=== PATIENT | female | born 1990 | race Caucasian/White ===

== ENCOUNTER 2021-08-02 12:54 | Emergency (ER) | payer OTHER, SELFPAY ==
--- NOTE | ~2021-08-02 | US_ITS ---
EXAMINATION: US OB <=14 wk fetus w TV EXAM DATE: 08/02/2021 17:35 INDICATION: , 1st trimester. Vaginal spotting and left lower quadrant pain. Beta hCG 151. . TECHNIQUE: Pelvic obstetrical transabdominal and transvaginal sonogram was performed by a techngary marie. There are multiple grayscale and Doppler images available for interpretation. There are no sid ier studies of this gestation for comparison. FINDINGS: Uterus measures 7.5 x 4.8 x 5.8 cm, is retroverted and morphologically normal, but without gestation sac identified. Endometrial stripe measures about 5 mm mm, within normal limits. There is small free pelvic fluid. Right adnexa: The ovary measures 4.7 x 2.6 x 3.3 cm, with a complex cystic, fishnet appearance region measuring 3.7 x 2.5 x 2.5 cm, appearance most consistent with a hemorrhagic cyst. No pole or y olk sac identified within this.. Ovarian vascular flow confirmed. Left adnexa: The ovary measures 4.3 x 2.2 x 2.9 cm, with multiple anechoic regions identified, larges t 2.4 cm, appearance most consistent with physiologic cysts. No pole or yolk sac identified wit hin these.. Ovarian vascular flow confirmed. IMPRESSION: 1. No intrauterine or extrauterine identified. Early intrauterine or recent spo ntaneous are common causes of elevated beta hCG in absence of intrauterine confirm ation. Ultrasound can sometimes identify, but never exclude an ectopic in the setting of p ositive beta hCG. Follow up as warranted clinically with serial beta hCG levels or ultrasound. 2. Right renal complex cystic lesion most consistent with hemorrhagic cyst. Reviewed, dictated and finalized at location A. IMPRESSION: 1. No intrauterine or extrauterine identified. Early intrauterine p regnancy or recent spontaneous are common causes of elevated beta hCG in absence of intrauterine confirmation. Ultrasound can sometimes id entify, but never exclude an ectopic in the setting of positive beta hCG. Follow up as warranted clinically with serial beta hCG levels or ultrasou nd. 2. Right renal complex cystic lesion most consistent with hemorrhagic cyst.
[2021-08-02 13:48] VITALS: BP 134/72; PULSE 84; RESP 18; TEMP 36.7; O2SAT 99
[2021-08-02 14:03] LABS: Basophils Percent Auto 0.3 % (0.2-1.2); Eosinophils Absolute Auto 0.1 K/mm3 (0-0.3); Eosinophils Percent Auto 1.4 % (0-4.4); Hematocrit 40.2 % (37.0-47.0); Hemoglobin 13.6 g/dL (12.0-15.0); Immature Granulocyte Absolute 0.02 K/mm3 (0.00-0.031); Immature Granulocyte Percent A 0.2 % (0-0.5); Lymphocytes Absolute Auto 2.55 K/mm3 (0.9-3.2); Lymphocytes Percent Auto 28.4 % (18.3-44.2); Mean Corpuscular HGB Conc 33.8 g/dl (32-36); Mean Corpuscular Hemoglobin 31.1 pg (26-34); Mean Corpuscular Volume 91.8 fl (80-100); Mean Platelet Volume 10.1 fl (7.4-10.4); Monocytes Absolute Auto 0.6 K/mm3 (0.1-0.6); Monocytes Percent Auto 6.1 % (2.6-8.5); Neutrophils Absolute Auto 5.7 K/mm3 (1.3-6.7); Neutrophils Percent Auto 63.6 % (45.5-73.1); Platelet Count Result 210 k/mm3 (150-375); Red Blood Count 4.38 M/mm3 (4.2-5.4); Red Cell Distribution Width 12.2 % (11.5-14.5)
[2021-08-02 14:29] LABS: Beta HCG Quantitative 151.62 mIU/ML
--- NOTE | 2021-08-02 16:33 | ED.FEMALEGU ---
HPI - Female Genitourinary General Chief complaint: Vaginal Bleeding Stated complaint: complication Time Seen by Provider: 08/02/21 16:01 Source: patient Mode of arrival: ambulatory Limitations: no limitations History of Present Illness HPI Narrative: Pt is a , last normal menstrual period 06/21/2021 that started one day later than usual. She took a UPT and the test was negative. She then had a spotting period that started on 07/17/2021 that lasted a brief time before it stopped. She began having breast tenderness and nausea, prompting her to take another UPT last weekend, with a positive result reported. She began spotting again this morning, only noting light pink on the tissue when she is wiping and she is having some mild pressure/discomfort in the left suprapubic abdomen. She denies associated vaginal discharge, urinary symptoms or STI risk. She made her first appointment with [facility] however, she has not had her first appointment yet, prompting her visit MD elicited complaint: vaginal bleeding Onset (ago): day(s) (1) Severity: mild Female Urogenital Radiation: Suprapubic (left suprapubic) Severity scale (1-10): 5 Quality of pain: dull Vaginal discharge: none Vaginal bleeding: scant Exacerbating factors: none Relieving factors: none Associated symptoms: denies other symptoms Related Data Allergies Allergy/AdvReac Type Severity Reaction Status Date / Time No Known Allergies Allergy Verified 08/02/21 16:01 Review of Systems Review of Systems: refer to HPI Genitourinary: Genitourinary: Reports no additional female genitourinary complaints and Reports as per HPI Exam Const: General: healthy appearing, no acute distress and alert Orientation/consciousness: patient oriented x3 Limitations: altered mental status HENMT: Head: normal to inspection Face and sinus: normal facial exam Eyes: Conjunctivae: conjunctivae normal Pupils: Equal, round and reactive pupils present EOM: EOMs intact bilaterally Neck: Neck: normal visual inspection Lymphatic: no lymphadenopathy noted Resp: Effort & Inspection: normal respiratory effort Cardio: Rate: regular rate GI: GI Palp: Yes Soft to palpation (non tender, non distended, no HSM, no rebound TTP) Auscultation: normal bowel sounds : General: Yes no CVA tenderness Bimanual Exam- Adnexa, other: tender on the left Back/Spine/Pelvis: Back: no CVA tenderness Skin: General skin exam: normal color Rashes: no rashes Neuro: General: patient oriented x3, moves all extremities, no meningeal signs, no focal motor deficits and CN's II-XI intact bilaterally Extrem: General: normal to inspection and no pedal edema Psych: Mental Status: mental status grossly normal Affect: normal affect Attitude: cooperative Course Course Emergency Course: Pt's vaginal bleeding remains at a pink tinge when wiping only when voiding. She is advised of lab and US report. Pt is endorsed to Dr Balbuena, cotton ginner helper OBGYN. He agrees to FU with patient outpatient; with repeat beta HCG to be completed in 2 days. Pt is advised of plan to discharge home with vitamins-OTC are fine as long as they contain DHA, calling the office tomorrow to arrange for outpatient labs in 48 hours. Pt is agreeable with plan and verbalizes understanding of instructions provided; including pelvic rest and when to return to the ER. Vital Signs Vital signs: Vital Signs Temperature 36.7 C 08/02/21 13:48 Pulse Rate 84 08/02/21 13:48 Respiratory Rate 18 08/02/21 13:48 Blood Pressure 134/72 08/02/21 13:48 Pulse Oximetry 99 08/02/21 13:48 Temperature 36.7 C 08/02/21 13:48 Pulse Rate 84 08/02/21 13:48 Respiratory Rate 18 08/02/21 13:48 Blood Pressure 134/72 08/02/21 13:48 Pulse Oximetry 99 08/02/21 13:48 MDM - Female Genitourinary MDM Narrative Medical decision making narrative: THREATENED AB, ECTOPIC , MISSED AB Lab Data Result diagrams:
[2021-08-02 18:52] VITALS: BP 130/72; PULSE 84; RESP 16; TEMP 36.8; O2SAT 99
== END 2021-08-02 18:53 | disposition home or self-care (01) ==
PROVIDERS: Emergency Medicine; Emergency Provider Nurse Practitioner Family; PCP Family Medicine
DX: O20.0 Threatened abortion (principal); Z3A.00 Weeks of gestation of pregnancy not specified
CPT/HCPCS: 36415; 76801; 76817; 84702; 85025; 85461; 99284

== ENCOUNTER 2021-08-04 09:51 | Outpatient (CLI) | payer OTHER, SELFPAY ==
[2021-08-04 10:54] LABS: Beta HCG Quantitative 63.07 mIU/ML
== END 2021-08-04 09:52 | disposition home or self-care (01) ==
LOC: ANHLAB 09:54
PROVIDERS: PCP Family Medicine; Visit Provider Obstetrics & Gynecology
DX: O20.0 Threatened abortion (principal); Z3A.00 Weeks of gestation of pregnancy not specified
CPT/HCPCS: 36415; 84702

== ENCOUNTER 2021-08-11 10:02 | Outpatient (CLI) | payer OTHER, SELFPAY ==
[2021-08-11 10:58] LABS: Beta HCG Quantitative 17.77 mIU/ML
== END 2021-08-11 10:03 | disposition home or self-care (01) ==
LOC: ANHLAB 10:04
PROVIDERS: PCP Family Medicine; Visit Provider Obstetrics & Gynecology
DX: O02.1 Missed abortion (principal); Z3A.00 Weeks of gestation of pregnancy not specified
CPT/HCPCS: 36415; 84702

== ENCOUNTER 2021-08-19 11:46 | Outpatient (CLI) | payer OTHER, SELFPAY ==
[2021-08-19 12:54] LABS: Beta HCG Quantitative 8.51 mIU/ML
== END 2021-08-19 11:47 | disposition home or self-care (01) ==
PROVIDERS: PCP Family Medicine; Visit Provider Obstetrics & Gynecology
DX: O20.0 Threatened abortion (principal); Z3A.00 Weeks of gestation of pregnancy not specified
CPT/HCPCS: 36415; 84702

== ENCOUNTER 2021-08-25 11:07 | Outpatient (CLI) | payer OTHER, SELFPAY ==
[2021-08-25 11:53] LABS: Beta HCG Quantitative 6.95 mIU/ML
== END 2021-08-25 11:08 | disposition home or self-care (01) ==
LOC: ANHLAB 11:10
PROVIDERS: PCP Family Medicine; Visit Provider Obstetrics & Gynecology
DX: O20.0 Threatened abortion (principal)
CPT/HCPCS: 36415; 84702

== ENCOUNTER → 2023-06-22 09:46 | Outpatient (CLI) | payer OTHER, SELFPAY ==
--- NOTE | ~2023-06-22 | US_ITS ---
Limited Abdominal Sonogram: Real-time sonographic imaging of the right upper quadrant was performed. Clinical History: Abnormal serum enzyme levels Findings: The liver appears echogenic, with no evidence of mass lesion or bile duct dilatation. Main portal vein demonstrates normal direction of flow. The gallbladder is well distended, and appears no rmal with no evidence of gallstone or wall thickening. The common bile duct measures 3 mm. The visua lized pancreas, aorta, and IVC are unremarkable. Right kidney measures 9.1 cm in length, without hydr onephrosis. Impression: Diffuse fatty infiltration of the liver. Reviewed, dictated and finalized at location M. IAL CRIMES INVESTIGATOR Impression: Diffuse fatty infiltration of the liver.
== END ==
PROVIDERS: PCP Physician Assistant; Visit Provider Physician Assistant
DX: K76.0 Fatty (change of) liver, not elsewhere classified (principal); R74.8 Abnormal levels of other serum enzymes
CPT/HCPCS: 76705

== ENCOUNTER 2024-08-11 10:05 | Outpatient (CLI) | payer SELFPAY ==
[2024-08-11 10:21] LABS: Kit Draw Collected
--- OUTSIDE RECORDS SUMMARY | 2024-08-11 11:15 | XMS_ITS ---
Author Organization [facility] Address [address] [place] [address] Care Team Providers Care Residential Property Consultant Name Role Phone Greg Emery MD Primary Care Provider Unavaila Orion Kwon Unavailable [phone] Larry Montez Unavailable [phone] REASON FOR VISIT SCIT - Traditional Schedule Allergy Immunotherapy Medications Medication SIG (Take, Route, Frequency, Duration) Notes Start Date End Date Status Auvi-Q 0.3 MG/0.3ML as directed intramuscularly once for 30 days Active Citalopram Hydrobromide 20 MG 1 tab(s) orally once a day Active Cetirizine HCl 10 MG 1 tab(s) orally once a day for 30 days Active Montelukast Sodium 10 MG 1 tab(s) orally once a day for 30 day(s) Active Triamcinolone Acetonide 55 MCG/ACT 2 spray(s) intranasally twice a day for 30 days Active Famotidine 40 mg 1 tab(s) orally 30 mins prior to SCIT for 30 days Active SIT (TRADITIONAL) variable per schedule SC per schedule for to be determined Active MONTELUKAST 10 mg 1 tab(s) orally once a day for 30 day(s) Active Fluticasone Propionate 50 MCG/ACT 2 sprays in each nostril Nasally Twice a day for 30 days Active EpiPen 2-Barrington 0.3 mg as directed intramuscularly once for 30 days Active NASAL WASHES N/A as directed intranasally as needed for 30 Active Montelukast Sodium 10 MG 1 tab(s) orally once a day for 90 day(s) Not-Taking SIT (TRADITIONAL) VARIABLE PER SCHEDULE SC PER SCHEDULE *Please review for potential replacement for e-prescription and drug interaction check* Active CETIRIZINE 10 mg 1 tab(s) orally once a day for 30 days Active CITALOPRAM 20 mg 1 tab(s) orally once a day Active Encounters Encounter Location Date Provider Diagnosis [facility] [address] [facility] [address] [place] [address] 07/01/2024 Montez Juarez Allergic rhinitis du e to pollen J30.1 ; Other allergic rhinitis J30.89 ; Allergic rhinitis due to animal (cat) (dog) hair and dander J30.81 and Other chronic allergic conjunctivitis H10.45 Assessments Encounter Date Diagnosis (ICD Code) Assessment Notes Treatment Notes Treatment Clinical Notes Section Notes 07/01/2024 Allergic rhinitis due to pollen (ICD-10 - J30.1) 07/01/2024 Other allergic rhinitis (ICD-10 - J30.89) 07/01/2024 Allergic rhinitis due to animal (cat) (dog) hair and dander (ICD-10 - J30.81) 07/01/2024 Other chronic allergic conjunctivitis (ICD-10 - H10.45) Plan Of Treatment Next Appt Details Follow Up: 1 Week, Reason: Provider Name:Montez Juarez , 08/12/2024 09:00:00 AM, [address] [place] [address], [phone], Provider Name:Orion Dumont Joel holbrook, 12/08/2024 09:15:00 AM, [address], [address] [place] [address], [id number], Progress Notes * Marivel WHEAT:1990 (34 yo F)Acc No.[id number]:07/01/2024 SCIT-Aeroallergen Patient: Stuart VILLALPANDOa Provider: Dayami Juarez MD :1990 A ge:34 Y S ex:Female Date:07/01/2024 [id number] Pcp:Greg Emery MD Subjective: * Chief Complaints: * S CIT - Traditional Schedule Allergy Immunotherapy * HPI: * Introduction: The patient is here for scheduled immunotherapy. Please see the attached specialty form regarding the specifics of the administration of these vaccines. As per our protocol, they must undergo a screening health questionnaire (medication changes, reaction(s) to last immunotherapy dose(s), current health status, ACT (if appropriate), self-injectable epinephrine on patient(?) and peak flow (if appropriate)). Also, the patient must wait in our office for 30 minutes after receiving the vaccine(s). Furthermore, every patient must have an epinephrine pen (self-injectable) with them at the time of administration--and carry if for the following 1.5 hours after they leave our office. The patient must also have taken their antihistamine the day of the injection, preferably 2 hours prior. The consent form for SCIT (subcutaneous immunotherapy) is on file. * Medical History: * Surgical History: * Hospitalization/Major Diagno stic Procedure: * Medications: T akingCITALOPRAM 20 mg tablet 1 tab(s) orally once a day CETIRIZINE 10 mg tablet 1 tab(s) orally once a day NASAL WASHES N/A 1 quart of sterilized tap water or distilled water, 1 tsp NaCl, 1 pinch of baking soda as directed intranasally as needed Famotidine 40 mg tablet 1 tab(s) orally 30 mins prior to SCIT MONTELUKAST 10 mg tablet 1 tab(s) orally once a day SIT (TRADITIONAL) variable see record per schedule SC per schedule EpiPen 2-Barrington 0.3 mg kit as directed intramuscularly once Fluticasone Propionate 50 MCG/ACT Suspension 2 sprays in each nostril Nasally Twice a day Famotidine 40 mg tablet 1 tab(s) orally 30 mins prior to SCIT EpiPen 2-Barrington 0.3 mg kit as directed intramuscularly once Cetirizine HCl 10 MG Tablet 1 tab(s) orally once a day Triamcinolone Acetonide 55 MCG/ACT Aerosol 2 spray(s) intranasally twice a day Montelukast Sodium 10 MG Tablet 1 tab(s) orally once a day Citalopram Hydrobromide 20 MG Tablet 1 tab(s) orally once a day Auvi-Q 0.3 MG/0.3ML Solution Auto-injector as directed intramuscularly once SIT (TRADITIONAL) VARIABLE SEE RECORD PER SCHEDULE SC PER SCHEDULE , Notes to Pharmacist: *Please review for potential replacement for e-prescription and drug interaction check*Taking CITALOPRAM 20 mg tablet 1 tab(s) orally once a day Taking CETIRIZINE 10 mg tablet 1 tab(s) orally once a day Taking NASAL WASHES N/A 1 quart of sterilized tap water or distilled water, 1 tsp NaCl, 1 pinch of baking soda as directed intranasally as needed Taking Famotidine 40 mg tablet 1 tab(s) orally 30 mins prior to SCIT Taking MONTELUKAST 10 mg tablet 1 tab(s) orally once a day Taking SIT (TRADITIONAL) variable see record per schedule SC per schedule Taking EpiPen 2-Barrington 0.3 mg kit as directed intramuscularly once Taking Fluticasone Propionate 50 MCG/ACT Suspension 2 sprays in each nostril Nasally Twice a day Taking Famotidine 40 mg tablet 1 tab(s) orally 30 mins prior to SCIT Taking EpiPen 2-Barrington 0.3 mg kit as directed intramuscularly once Taking Cetirizine HCl 10 MG Tablet 1 tab(s) orally once a day Taking Triamcinolone Acetonide 55 MCG/ACT Aerosol 2 spray(s) intranasally twice a day Taking Montelukast Sodium 10 MG Tablet 1 tab(s) orally once a day Taking Citalopram Hydrobromide 20 MG Tablet 1 tab(s) orally once a day Taking Auvi-Q 0.3 MG/0.3ML Solution Auto-injector as directed intramuscularly once Taking SIT (TRADITIONAL) VARIABLE SEE RECORD PER SCHEDULE SC PER SCHEDULE , Notes to Pharmacist: *Please review for potential replacement for e-prescription and drug interaction check*Not-Taking/PRNMontelukast Sodium 10 MG Tablet 1 tab(s) orally once a day Not-Taking/PRN Montelukast Sodium 10 MG Tablet 1 tab(s) orally once a day Objective: * Vitals: Assessment: * Assessment: 1. A llergic rhinitis due to pollen - J30.1 (Primary) 2 . O ther allergic rhinitis - J30.89 3 . A llergic rhinitis due to animal (cat) (dog) hair and dander - J30.81 4 . O ther chronic allergic conjunctivitis - H10.45 Plan: * Treatment: * Procedure Codes: 9 5117 IMMUNOTHERAPY INJECTIONS * Follow Up: 1 Week * Billing Information: * Visit Code: * Procedure Codes: 63316 IMMUNOTHERAPY INJECTIONS. * TRIMMER Sign off status: Completed true * Provider: Dayami Juarez MD Date: 0 07/01/2024 Generated for Michael cardoza/Amber/Baldo on: 08/11/2024 11:14 AM CDT History and Physical Notes * HPI (History of Present Illness) Category Sub-Category Detail Notes Category Not es *Introduction The patient is here for scheduled immunotherapy. Please see the attached specialty form regarding the specifics of the administration of these vaccines. As per our protocol, they must undergo a screening health questionnaire (medication changes, reaction(s) to last immunotherapy dose(s), current health status, ACT (if appropriate), self-injectable epinephrine on patient(?) and peak flow (if appropriate)). Also, the patient must wait in our office for 30 minutes after receiving the vaccine(s). Furthermore, every patient must have an epinephrine pen (self-injectable) with them at the time of administration--and carry if for the following 1.5 hours after they leave our office. The patient must also have taken their antihistamine the day of the injection, preferably 2 hours prior. The consent form for SCIT (subcutaneous immunotherapy) is on file.
--- OUTSIDE RECORDS SUMMARY | 2024-08-11 11:15 | XMS_ITS | Patient Health Record ---
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 Name Role Phone Greg Emery MD Primary Care Provider UnavailOrion Colunga Unavailable [phone] Larry Montez Unavailable [phone] [employer], Provider Unavailable Unavailab le Allergies No Known Allergies Reason For Referral No Information Medications Medication SIG (Take, Route, Frequency, Duration) Notes Start Date End Date Status EPIPEN 2-BARRINGTON 0.3 mg as directed intramuscularly once for 30 days Active FAMOTIDINE 40 mg 1 tab(s) orally 30 mins prior to SCIT for 30 days Active CITALOPRAM 20 mg 1 tab(s) orally once a day Active SIT (TRADITIONAL) VARIABLE PER SCHEDULE SC PER SCHEDULE *Please review for potential replacement for e-prescription and drug interaction check* Active Auvi-Q 0.3 MG/0.3ML as directed intramuscularly once for 30 days Active Citalopram Hydrobromide 20 MG 1 tab(s) orally once a day Active SIT (TRADITIONAL) variable per schedule SC per schedule for to be determined Active MONTELUKAST 10 mg 1 tab(s) orally once a day for 30 day(s) Active NASAL WASHES N/A as directed intranasally as needed for 30 Active CETIRIZINE 10 mg 1 tab(s) orally once a day for 30 days Active Montelukast Sodium 10 MG 1 tab(s) orally once a day for 90 day(s) Not-Taking EpiPen 2-Barrington 0.3 mg as directed intramuscularly once for 30 days Active Montelukast Sodium 10 MG 1 tab(s) orally once a day for 30 day(s) Active Famotidine 40 mg 1 tab(s) orally 30 mins prior to SCIT for 30 days Active Triamcinolone Acetonide 55 MCG/ACT 2 spray(s) intranasally twice a day for 30 days Active Cetirizine HCl 10 MG 1 tab(s) orally once a day for 30 days Active Fluticasone Propionate 50 MCG/ACT 2 sprays in each nostril Nasally Twice a day for 30 days Active Immunizations Vaccine Route Administration Date Status Comme nts Flucelvax Unknown 03/11/2021 Administered Influenza Unknown 02/14/2020 Administered Portal Supertecr Reacción NOC Tdap Unknown 04/04/2018 Administered Portal Infor Reacción Allergy Immunotherapy Weekly Unknown 11/16/2020 Administered Portal Informati on Social History Tobacco Use: Social History Observation Description Date Details (start date - stop date) Never Smoker NA - NA Smoking Smart Form: Question Answer Notes Are you a: never smoker Tobacco Control (Standard) Question Answer Notes Tobacco use: Nonsmoker Section Notes: Problems Problem Type SNOMED Code ICD Code Onset Dates Problem Status W/U Status Risk Notes Problem Anxiety disorder (678897552) Anxiety disorder, unspecified (F41.9) Active confirmed Problem Chronic allergic conjunctivitis (18021584) Other chronic allergic conjunctivitis (H10.45) Active confirmed Problem Allergic rhinitis caused by pollen (disorder) (48051413) Allergic rhinitis due to pollen (J30.1) Active confirmed Problem Allergic rhinitis caused by animal hair and dander (375918381766945) Allergic rhinitis due to animal (cat) (dog) hair and dander (J30.81) Active confirmed Problem Allergic rhinitis (62858347) Other allergic rhinitis (J30.89) Active confirmed Problem Allergic rhinitis caused by pollen (disorder) (47585415) Allergic rhinitis due to pollen (J30.1) Active confirmed Problem Allergic rhinitis caused by animal hair and dander (825090011032545) Allergic rhinitis due to animal (cat) (dog) hair and dander (J30.81) Active confirmed Problem Allergic rhinitis (33678818) Other allergic rhinitis (J30.89) Active confirmed Problem Chronic allergic conjunctivitis (85264178) Other chronic allergic conjunctivitis (H10.45) Active confirmed Vital Signs Oximetry 98 % 06/03/2024 Blood pressure diastolic 75 mm Hg 06/03/2024 Height 66 in 06/03/2024 Blood pressure systolic 115 mm Hg 06/03/2024 Weight 234.2 lbs 06/03/2024 BMI 37.8 kg/m2 06/03/2024 Encounters Encounter Location Date Provider Diagnosis [facility] [address] [place] [address] 10/13/2023 Provider P[place]y [address] [address] 08/13/2023 Montez Juarez Allergic rhinitis du e to pollen J30.1 ; Other allergic rhinitis J30.89 ; Allergic rhinitis due to animal (cat) (dog) hair and dander J30.81 and Other chronic allergic conjunctivitis H10.[address] [address] 08/20/2023 Montez Juarez Allergic rhinitis du e to pollen J30.1 ; Other allergic rhinitis J30.89 ; Allergic rhinitis due to animal (cat) (dog) hair and dander J30.81 and Other chronic allergic conjunctivitis H10.[address] [address] 09/17/2023 Montez Juarez Allergic rhinitis du e to pollen J30.1 ; Other allergic rhinitis J30.89 ; Allergic rhinitis due to animal (cat) (dog) hair and dander J30.81 and Other chronic allergic conjunctivitis H10.[address] [address] 10/16/2023 Montez Juarez Allergic rhinitis du e to pollen J30.1 ; Other allergic rhinitis J30.89 ; Allergic rhinitis due to animal (cat) (dog) hair and dander J30.81 and Other chronic allergic conjunctivitis H10.[address] [address] 11/13/2023 Montez Juarez Allergic rhinitis du e to pollen J30.1 ; Other allergic rhinitis J30.89 ; Allergic rhinitis due to animal (cat) (dog) hair and dander J30.81 and Other chronic allergic conjunctivitis H10.[address] [address] 12/04/2023 Orion Greff Allergic rhinitis du e to pollen J30.1 ; Allergic rhinitis due to animal (cat) (dog) hair and dander J30.81 ; Other allergic rhinitis J30.89 and Other chronic allergic conjunctivitis H10.45 [facility] [address] [place] [address] 01/01/2024 Montez Juarez Allergic rhinitis du e to pollen J30.1 ; Other allergic rhinitis J30.89 ; Allergic rhinitis due to animal (cat) (dog) hair and dander J30.81 and Other chronic allergic conjunctivitis H10.45 [facility] [address] [place] [address] 01/29/2024 Montez Juarez Allergic rhinitis du e to pollen J30.1 ; Other allergic rhinitis J30.89 ; Allergic rhinitis due to animal (cat) (dog) hair and dander J30.81 and Other chronic allergic conjunctivitis H10.45 [facility] [address] [place] [address] 02/26/2024 Montez Juarez Allergic rhinitis du e to pollen J30.1 ; Other allergic rhinitis J30.89 ; Allergic rhinitis due to animal (cat) (dog) hair and dander J30.81 and Other chronic allergic conjunctivitis H10.45 [facility] [address] [place] [address] 04/01/2024 Montez Juarez Allergic rhinitis du e to pollen J30.1 ; Other allergic rhinitis J30.89 ; Allergic rhinitis due to animal (cat) (dog) hair and dander J30.81 and Other chronic allergic conjunctivitis H10.45 [facility] [address] [place] [address] 05/07/2024 Montez Juarez Allergic rhinitis du e to pollen J30.1 ; Other allergic rhinitis J30.89 ; Allergic rhinitis due to animal (cat) (dog) hair and dander J30.81 and Other chronic allergic conjunctivitis H10.45 [facility] [address] [place] [address] 06/03/2024 Orion Graf Allergic rhinitis du e to pollen J30.1 ; Allergic rhinitis due to animal (cat) (dog) hair and dander J30.81 ; Other allergic rhinitis J30.89 and Other chronic allergic conjunctivitis H10.[address] [address] 07/01/2024 Montez Juarez Allergic rhinitis du e to pollen J30.1 ; Other allergic rhinitis J30.89 ; Allergic rhinitis due to animal (cat) (dog) hair and dander J30.81 and Other chronic allergic conjunctivitis H10.[address] [address] 07/08/2024 Montez Juarez Allergic rhinitis du e to pollen J30.1 ; Other allergic rhinitis J30.89 ; Allergic rhinitis due to animal (cat) (dog) hair and dander J30.81 and Other chronic allergic conjunctivitis H10.[address] [address] 07/15/2024 Montez Juarez Allergic rhinitis du e to pollen J30.1 ; Other allergic rhinitis J30.89 ; Allergic rhinitis due to animal (cat) (dog) hair and dander J30.81 and Other chronic allergic conjunctivitis H10.45 Assessments Encounter Date Diagnosis (ICD Code) Assessment Notes Treatment Notes Treatment Clinical Notes Section Notes 08/13/2023 Allergic rhinitis due to pollen (ICD-10 - J30.1) 08/20/2023 Allergic rhinitis due to pollen (ICD-10 - J30.1) 09/17/2023 Allergic rhinitis due to pollen (ICD-10 - J30.1) 10/16/2023 Allergic rhinitis due to pollen (ICD-10 - J30.1) 11/13/2023 Allergic rhinitis due to pollen (ICD-10 - J30.1) 12/04/2023 Allergic rhinitis due to pollen (ICD-10 - J30.1) Tonia clearly suffers from additional atopic disease based upon our skin testing as well as prior records. Accordingly, we have continued a new, aggressive medication regimen, discussed nasal washes and allergy-specific avoidance measures. She contineus to tolerate SCIT noted improvement in baseline symtpoms. She contines to see improvement on MM dosing. Continue triple premedication 30 mins to 2 hours before SCIT. Keep AIE on hand 2 hours after SCIT. Procedure tolerated today without issue.On MM x 2 years now. Okay to use Zyrten PRN though increase with use with increase in symptoms. Return per schedule for SCIT and 6 months for E&M. Increase SCIT in peak seasons PRN 12/04/2023 Allergic rhinitis due to animal (cat) (dog) hair and dander (ICD-10 - J30.81) Follow allergen avoidance, meds and continue SCIT as an adjunctive treatment to current regimen 01/01/2024 Allergic rhinitis due to pollen (ICD-10 - J30.1) 01/29/2024 Allergic rhinitis due to pollen (ICD-10 - J30.1) 02/26/2024 Allergic rhinitis due to pollen (ICD-10 - J30.1) 04/01/2024 Allergic rhinitis due to pollen (ICD-10 - J30.1) 05/07/2024 Allergic rhinitis due to pollen (ICD-10 - J30.1) 06/03/2024 Allergic rhinitis due to pollen (ICD-10 - J30.1) Tonia clearly suffers from additional atopic disease based upon our skin testing as well as prior records. Accordingly, we have continued a new, aggressive medication regimen, discussed nasal washes and allergy-specific avoidance measures. She contineus to tolerate SCIT noted improvement in baseline symtpoms. She contines to see improvement on MM dosing. Continue triple premedication 30 mins to 2 hours before SCIT. Keep AIE on hand 2 hours after SCIT. Procedure tolerated today without issue.On MM x 2.5 years now. Currnetly using Zyrten PRN. Advised trial off Zyrtec and Floanse this Spring to asses symptomatic baseline. Return per schedule for SCIT and 6 months for E&M. Increase SCIT in peak seasons PRN 06/03/2024 Allergic rhinitis due to animal (cat) (dog) hair and dander (ICD-10 - J30.81) Follow allergen avoidance, meds and continue SCIT as an adjunctive treatment to current regimen 07/01/2024 Allergic rhinitis due to pollen (ICD-10 - J30.1) 07/08/2024 Allergic rhinitis due to pollen (ICD-10 - J30.1) 07/15/2024 Allergic rhinitis due to pollen (ICD-10 - J30.1) 07/15/2024 Other allergic rhinitis (ICD-10 - J30.89) 07/08/2024 Other allergic rhinitis (ICD-10 - J30.89) 07/01/2024 Other allergic rhinitis (ICD-10 - J30.89) 06/03/2024 Other allergic rhinitis (ICD-10 - J30.89) Follow allergen avoidance, meds and continue SCIT as an adjunctive treatment to current regimen 05/07/2024 Other allergic rhinitis (ICD-10 - J30.89) 04/01/2024 Other allergic rhinitis (ICD-10 - J30.89) 02/26/2024 Other allergic rhinitis (ICD-10 - J30.89) 01/29/2024 Other allergic rhinitis (ICD-10 - J30.89) 01/01/2024 Other allergic rhinitis (ICD-10 - J30.89) 12/04/2023 Other allergic rhinitis (ICD-10 - J30.89) Follow allergen avoidance, meds and continue SCIT as an adjunctive treatment to current regimen 11/13/2023 Other allergic rhinitis (ICD-10 - J30.89) 10/16/2023 Other allergic rhinitis (ICD-10 - J30.89) 09/17/2023 Other allergic rhinitis (ICD-10 - J30.89) 08/20/2023 Other allergic rhinitis (ICD-10 - J30.89) 08/13/2023 Other allergic rhinitis (ICD-10 - J30.89) 08/13/2023 Allergic rhinitis due to animal (cat) (dog) hair and dander (ICD-10 - J30.81) 08/20/2023 Allergic rhinitis due to animal (cat) (dog) hair and dander (ICD-10 - J30.81) 09/17/2023 Allergic rhinitis due to animal (cat) (dog) hair and dander (ICD-10 - J30.81) 10/16/2023 Allergic rhinitis due to animal (cat) (dog) hair and dander (ICD-10 - J30.81) 12/04/2023 Other chronic allergic conjunctivitis (ICD-10 - H10.45) Given ocular signs and symptoms I encouraged allergy avoidance measures and meds as above. If symptoms persist, consider adding additional medications including intraocular antihistamine/mas t cell stabilizer, PRN and continue SCIT as an adjunctive measure 11/13/2023 Allergic rhinitis due to animal (cat) (dog) hair and dander (ICD-10 - J30.81) 01/01/2024 Allergic rhinitis due to animal (cat) (dog) hair and dander (ICD-10 - J30.81) 01/29/2024 Allergic rhinitis due to animal (cat) (dog) hair and dander (ICD-10 - J30.81) 02/26/2024 Allergic rhinitis due to animal (cat) (dog) hair and dander (ICD-10 - J30.81) 04/01/2024 Allergic rhinitis due to animal (cat) (dog) hair and dander (ICD-10 - J30.81) 06/03/2024 Other chronic allergic conjunctivitis (ICD-10 - H10.45) Given ocular signs and symptoms I encouraged allergy avoidance measures and meds as above. If symptoms persist, consider adding additional medications including intraocular antihistamine/mas t cell stabilizer, PRN and continue SCIT as an adjunctive measure 05/07/2024 Allergic rhinitis due to animal (cat) (dog) hair and dander (ICD-10 - J30.81) 07/01/2024 Allergic rhinitis due to animal (cat) (dog) hair and dander (ICD-10 - J30.81) 07/08/2024 Allergic rhinitis due to animal (cat) (dog) hair and dander (ICD-10 - J30.81) 07/15/2024 Allergic rhinitis due to animal (cat) (dog) hair and dander (ICD-10 - J30.81) 07/15/2024 Other chronic allergic conjunctivitis (ICD-10 - H10.45) 07/08/2024 Other chronic allergic conjunctivitis (ICD-10 - H10.45) 07/01/2024 Other chronic allergic conjunctivitis (ICD-10 - H10.45) 05/07/2024 Other chronic allergic conjunctivitis (ICD-10 - H10.45) 04/01/2024 Other chronic allergic conjunctivitis (ICD-10 - H10.45) 02/26/2024 Other chronic allergic conjunctivitis (ICD-10 - H10.45) 01/29/2024 Other chronic allergic conjunctivitis (ICD-10 - H10.45) 01/01/2024 Other chronic allergic conjunctivitis (ICD-10 - H10.45) 11/13/2023 Other chronic allergic conjunctivitis (ICD-10 - H10.45) 10/16/2023 Other chronic allergic conjunctivitis (ICD-10 - H10.45) 09/17/2023 Other chronic allergic conjunctivitis (ICD-10 - H10.45) 08/20/2023 Other chronic allergic conjunctivitis (ICD-10 - H10.45) 08/13/2023 Other chronic allergic conjunctivitis (ICD-10 - H10.45) Plan Of Treatment Next Appt Details Provider Name:Montez HGeovani Juarez , 08/12/2024 09:00:00 AM, [address] [facility], [address], [address], Provider Name:Orion holbrook, 12/08/2024 09:15:00 AM, [address] [facility], [address], [address], Insurance Providers Payer Name Payer Address Payer Phone Subscriber Number Group Number Insured Name Patient Relationship to Insured Coverage Start Date Coverage End Date [employer] POS II [address] [place] [address] [id number] Dev Long Spouse - patient is the spouse of the insured Medical (General) History Medical History History ICD Code Anxiety disorder, unspecified F41.9 Allergic rhinitis due to pollen J30.1 Allergic rhinitis due to animal (cat) (d og) hair and dander J30.81 Other allergic rhinitis J30.89 Surgical History Surgery Date(Month/Year)
--- OUTSIDE RECORDS SUMMARY | 2024-08-11 11:15 | XMS_ITS ---
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 Role Phone Greg Emery MD Primary Care Provider Unavaila Orion Kwon Unavailable [phone] Larry Montez Unavailable [phone] REASON FOR VISIT SCIT - Traditional Schedule Allergy Immunotherapy Medications Medication SIG (Take, Route, Frequency, Duration) Notes Start Date End Date Status Montelukast Sodium 10 MG 1 tab(s) orally once a day for 90 day(s) Not-Taking Montelukast Sodium 10 MG 1 tab(s) orally once a day for 30 day(s) Active SIT (TRADITIONAL) VARIABLE PER SCHEDULE SC [...] Twice a day for 30 days Active NASAL WASHES N/A as directed intranasally as needed for 30 Active CETIRIZINE 10 mg 1 tab(s) orally once a day for 30 days Active EpiPen 2-Barrington 0.3 mg as directed intramuscularly once for 30 days Active Famotidine 40 mg 1 tab(s) orally 30 mins prior to SCIT for 30 days Active CITALOPRAM 20 mg 1 tab(s) orally once a day Active Encounters Encounter Location Date Provider Diagnosis [facility] [address] [facility] [address] [place] [address] 07/15/2024 Montez Juarez Allergic rhinitis du e to pollen J30.1 ; Other allergic rhinitis J30.89 ; Allergic rhinitis due to animal (cat) (dog) hair and dander J30.81 and Other chronic allergic conjunctivitis H10.45 Assessments Encounter Date Diagnosis (ICD Code) Assessment Notes Treatment Notes Treatment Clinical Notes Section Notes 07/15/2024 Allergic rhinitis due to pollen (ICD-10 - J30.1) 07/15/2024 Other allergic rhinitis (ICD-10 - J30.89) 07/15/2024 Allergic rhinitis due to animal (cat) (dog) hair and dander (ICD-10 - J30.81) 07/15/2024 Other chronic allergic conjunctivitis (ICD-10 - H10.45) Plan Of Treatment Next Appt Details Follow Up: 1 Week, Reason: Provider Name:Montez Juarez , 08/12/2024 09:00:00 AM, [address] [facility], [address] [place] [address], [phone], Provider Name:Orion Dumont Joel holbrook, 12/08/2024 09:15:00 AM, [address] [facility], [address] [place] [address], [phone], Progress Notes * Marivel WHEAT:1990 (34 yo F)Acc No.[id number]:07/15/2024 SCIT-Aeroallergen Patient: Tonia VILLALPANDO Provider: Dayami Juarez MD :1990 A ge:34 Y S ex:Female Date:07/15/2024 [facility] [address] [id number] Pcp:Greg Emery MD Subjective: * Chief Complaints: [...] Hospitalization/Major Diagno stic Procedure: * Medications: T akingFamotidine 40 mg tablet 1 tab(s) orally 30 mins prior to SCIT EpiPen 2-Barrington 0.3 mg kit as directed intramuscularly once Famotidine 40 mg tablet 1 tab(s) orally 30 mins prior to SCIT EpiPen 2-Barrington 0.3 mg kit as directed intramuscularly once CITALOPRAM 20 mg tablet 1 tab(s) orally once a day CETIRIZINE 10 mg tablet 1 tab(s) orally once a day NASAL WASHES N/A 1 quart of sterilized tap water or distilled water, 1 tsp NaCl, 1 pinch of baking soda as directed intranasally as needed MONTELUKAST 10 mg tablet 1 tab(s) orally once a day SIT (TRADITIONAL) variable see record per schedule SC per schedule Fluticasone Propionate 50 MCG/ACT Suspension 2 sprays in each nostril Nasally Twice a day Cetirizine HCl 10 MG Tablet 1 tab(s) [...] replacement for e-prescription and drug interaction check*Taking Famotidine 40 mg tablet 1 tab(s) orally 30 mins prior to SCIT Taking EpiPen 2-Barrington 0.3 mg kit as directed intramuscularly once Taking Famotidine 40 mg tablet 1 tab(s) orally 30 mins prior to SCIT Taking EpiPen 2-Barrington 0.3 mg kit as directed intramuscularly once Taking CITALOPRAM 20 mg tablet 1 tab(s) orally once a day Taking CETIRIZINE 10 mg tablet 1 tab(s) orally once a day Taking NASAL WASHES N/A 1 quart of sterilized tap water or distilled water, 1 tsp NaCl, 1 pinch of baking soda as directed intranasally as needed Taking MONTELUKAST 10 mg tablet 1 tab(s) orally once a day Taking SIT (TRADITIONAL) variable see record per schedule SC per schedule Taking Fluticasone Propionate 50 MCG/ACT Suspension 2 sprays in each nostril Nasally Twice a day Taking Cetirizine HCl 10 MG Tablet 1 [...] potential replacement for e-prescription and drug interaction check*Not- Taking/PRNMontelukast Sodium 10 MG Tablet 1 tab(s) orally [...] Information: * Visit Code: * Procedure Codes: 13206 IMMUNOTHERAPY INJECTIONS. * Sign off status: Completed true * Provider: Dayami Juarez MD Date: 0 07/15/2024 Generated for Michael cardoza/Amber/Baldo on: 0 08/11/2024 11:15 AM CDT History and Physical Notes * [...]
--- OUTSIDE RECORDS SUMMARY | 2024-08-11 11:15 | XMS_ITS ---
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 Name Role Phone Greg Emery MD Primary Care Provider Unavaila Orion Kwon Unavailable [phone] Larry Montez Unavailable [phone] REASON FOR VISIT SCIT - Traditional Schedule Allergy Immunotherapy Medications Medication SIG (Take, Route, Frequency, Duration) Notes Start Date End Date Status SIT (TRADITIONAL) VARIABLE PER SCHEDULE SC PER SCHEDULE *Please review for potential replacement for e-prescription and drug interaction check* Active Montelukast Sodium 10 MG 1 tab(s) orally once a day for 90 day(s) Not-Taking Citalopram Hydrobromide 20 MG 1 tab(s) orally once a day Active Auvi-Q 0.3 MG/0.3ML as directed intramuscularly once for 30 days Active Montelukast Sodium 10 MG 1 tab(s) orally once a day for 30 day(s) Active Fluticasone Propionate 50 MCG/ACT 2 sprays in each nostril Nasally Twice a day for 30 days Active Cetirizine HCl 10 MG 1 tab(s) orally once a day for 30 days Active Triamcinolone Acetonide 55 MCG/ACT 2 spray(s) intranasally twice a day for 30 days Active MONTELUKAST 10 mg 1 tab(s) orally once a day for 30 day(s) Active SIT (TRADITIONAL) variable per schedule SC per schedule for to be determined Active Famotidine 40 mg 1 tab(s) orally 30 mins prior to SCIT for 30 days Active NASAL WASHES N/A as directed intranasally as needed for 30 Active CETIRIZINE 10 mg 1 tab(s) orally once a day for 30 days Active EpiPen 2-Barrington 0.3 mg as directed intramuscularly once for 30 days Active CITALOPRAM 20 mg 1 tab(s) orally once a day Active Encounters Encounter Location Date Provider Diagnosis [facility] [address] [facility] [address] [place] [address] 07/08/2024 Montez Juarez Allergic rhinitis du e to pollen J30.1 ; Other allergic rhinitis J30.89 ; Allergic rhinitis due to animal (cat) (dog) hair and dander J30.81 and Other chronic allergic conjunctivitis H10.45 Assessments Encounter Date Diagnosis (ICD Code) Assessment Notes Treatment Notes Treatment Clinical Notes Section Notes 07/08/2024 Allergic rhinitis due to pollen (ICD-10 - J30.1) 07/08/2024 Other allergic rhinitis (ICD-10 - J30.89) 07/08/2024 Allergic rhinitis due to animal (cat) (dog) hair and dander (ICD-10 - J30.81) 07/08/2024 Other chronic allergic conjunctivitis (ICD-10 - H10.45) Plan Of Treatment Next Appt Details Follow Up: 1 Week, Reason: Provider Name:Montez Juarez , 08/12/2024 09:00:00 AM, [address] [email or web address], [address] [place] [address], [phone], Provider Name:Orion Dumont Joel holbrook, 12/08/2024 09:15:00 AM, [address] [employer], [address] [place] [address], [phone], Progress Notes * Marivel WHEAT:1990 (34 yo F)Acc No.[id number]:07/08/2024 SCIT-Aeroallergen Patient: Tonia VILLALPANDO Provider: Dayami Juarez MD :1990 A ge:34 Y S ex:Female Date:07/08/2024 [facility] [address] [id number] Pcp:Greg Emery MD Subjective: * Chief Complaints: [...] Information: * Visit Code: * Procedure Codes: 35527 IMMUNOTHERAPY INJECTIONS. * Sign off status: Completed true * Provider: Dayami Juarez MD Date: 0 07/08/2024 Generated for Michael cardoza/Amber/Baldo on: 0 08/11/2024 [...]
== END 2024-08-11 10:06 | disposition home or self-care (01) ==
PROVIDERS: PCP Family Medicine; Visit Provider Chiropractor
DX: M04.9 Autoinflammatory syndrome, unspecified (principal); K76.0 Fatty (change of) liver, not elsewhere classified; L40.0 Psoriasis vulgaris
CPT/HCPCS: 36415

== ENCOUNTER 2025-04-21 11:23 | Outpatient (CLI) | payer OTHER, SELFPAY ==
--- OUTSIDE RECORDS SUMMARY | 2025-02-10 11:30 | XMS_ITS ---
Author Organization On License Of [facility] [employer] [place] ([address]) Address [address] [place] [address] Care Team Providers Care Hair Sample Matcher Name Role Phone Greg Emery MD Primary Care Provider Unavaila Cari Mcmahon Unavailable [phone] Montez Juarez Unavailable [phone] REASON FOR VISIT SCIT - Traditional Schedule Allergy Immunotherapy Social History Sex Assigned At : Social History Observation Description Sex Assigned At Female Encounters Encounter Location Date Provider Diagnosis [facility] [address] [place] [address] 02/10/2025 Montez Juarez Allergic rhinitis du e to pollen J30.1 ; Other allergic rhinitis J30.89 ; Allergic rhinitis due to animal (cat) (dog) hair and dander J30.81 and Other chronic allergic conjunctivitis H10.45 Assessments Encounter Date Diagnosis (ICD Code) Assessment Notes Treatment Notes Treatment Clinical Notes Section Notes 02/10/2025 Allergic rhinitis due to pollen (ICD-10 - J30.1) 02/10/2025 Other allergic rhinitis (ICD-10 - J30.89) 02/10/2025 Allergic rhinitis due to animal (cat) (dog) hair and dander (ICD-10 - J30.81) 02/10/2025 Other chronic allergic conjunctivitis (ICD-10 - H10.45) Plan Of Treatment Next Appt Details Follow Up: 1 Week, Reason: Provider Name:Montez Juarez , 05/12/2025 09:30:00 AM, [address], [address], [place], [address], Provider Name:Cari dumont, 06/22/2025 10:30:00 AM, [address] [facility], [address], [place], [address], Progress Notes * Monico WHEATB:1990 (34 yo F)Acc No.[id number]:02/10/2025 SCIT-Aeroallergen Patient: Tonia VILLALPANDO Provider: Dayami Juarez MD :1990 A ge:34 Y S ex:Female Date:02/10/2025 Address:[address] [place] [address] [facility] Pcp:Greg Emery MD Subjective: * Chief Complaints: * 1 . SCIT - Traditional Schedule Allergy Immunotherapy. * HPI: * Introduction: The patient is [...] immunotherapy) is on file. * Medical History: Objective: * Vitals: Assessment: * Assessment: 1. A llergic rhinitis due to pollen - J30.1 (Primary) 2 . O ther allergic rhinitis - J30.89 3 . A llergic rhinitis due to animal (cat) (dog) hair and dander - J30.81 4 . O ther chronic allergic conjunctivitis - H10.45 Plan: * Treatment: * Follow Up: 1 Week * Billing Information: * Visit Code: * Procedure Codes: 16034 IMMUNOTHERAPY INJECTIONS. * Electronic signature of Raphael Juarez MD, FAAAAI on 04/21/2025 at 11:47 AM HOSE HANDLER Sign off status: Pending * Provider: Dayami Juarez MD Date: Generated for Michael cardoza/Amber/Baldo on: 06/22/2024 11:47 AM HOSE HANDLER History and Physical Notes * HPI (History [...]
--- NOTE | ~2025-04-21 | MMUS_ITS ---
EXAMINATION: US breast RT limited, MM diagnostic rommel BI w eliot HISTORY: Palpable abnormality on the right TECHNIQUE: Craniocaudal and mediolateral oblique 3-D tomosynthesis images were obtained and synthetic 2-D images were generated. CAD analysis was submitted and interpreted. Grayscale sonography over the area(s) of interest with color Doppler if there is a finding. COMPARISON: None available. BREAST PARENCHYMAL COMPOSITION: Not Dense: There are scattered areas of fibroglandular MAMMOGRAM FINDINGS: No suspicious masses are seen. There are no suspicious calcifications. No unexplained architectural distortion is seen. There are no skin or nipple abnormalities identified. There is no adenopathy seen on the images submitted. ULTRASOUND FINDINGS: No cystic or solid masses are seen in the area(s) of concern. IMPRESSION: No mammographic evidence to suggest malignancy is seen. Negative or inconclusive breast imaging studies should not deter biopsy if there are clinically suspicious palpable abnormalities. The patient may return to screening mammography as per ACR guidelines. BI-RADS 1 - Negative. Reviewed, dictated and finalized at location C. AND RISK ANALYSIS MANAGER IMPRESSION: No mammographic evidence to suggest malignancy is seen. Negative or inconclusiv e breast imaging studies should not deter biopsy if there are clinically suspic ious palpable abnormalities. The patient may return to screening mammography a s per ACR guidelines. BI-RADS 1 - Negative.
--- OUTSIDE RECORDS SUMMARY | 2025-04-21 11:48 | XMS_ITS | Patient Health Record ---
Author Organization [facility] [place] ([address]) Address [address] [place] [address] Care Team Providers Care Rib Matcher And Fitter Name Role Phone Greg Emery MD Primary Care Provider UnavailCari Santos Unavailable [phone] Montez Juarez Unavailable [phone] Orion Graf Unavailable [phone] Allergies No Known Allergies Reason For Referral No Information Medications Medication SIG (Take, Route, Frequency, Duration) Notes Start Date End Date Status Montelukast Sodium 10 MG 1 tab(s) orally once a day; Duration: 30 day(s) Active Triamcinolone Acetonide 55 MCG/ACT 2 spray(s) intranasally twice a day; Duration: 30 days Active Cetirizine HCl 10 MG 1 tab(s) orally once a day; Duration: 30 days Active Fluticasone Propionate 50 MCG/ACT 2 sprays in each nostril Nasally Twice a day; Duration: 30 days Active SIT (TRADITIONAL) variable per schedule SC per schedule; Duration: to be determined Active MONTELUKAST 10 mg 1 tab(s) orally once a day; Duration: 30 day(s) Active NASAL WASHES N/A as directed intranasally as needed; Duration: 30 Active EpiPen 2-Barrington 0.3 mg as directed intramuscularly once; Duration: 30 days Active Montelukast Sodium 10 MG 1 tab(s) orally once a day; Duration: 90 day(s) Not-Taking FAMOTIDINE 40 mg 1 tab(s) orally 30 mins prior to SCIT; Duration: 30 days Active CETIRIZINE 10 mg 1 tab(s) orally once a day; Duration: 30 days Active CITALOPRAM 20 mg 1 tab(s) orally once a day Active SIT (TRADITIONAL) VARIABLE PER SCHEDULE SC PER SCHEDULE *Please review for potential replacement for e-prescription and drug interaction check* Active Auvi-Q 0.3 MG/0.3ML as directed intramuscularly once; Duration: 30 days Active Famotidine 40 mg 1 tab(s) orally 30 mins prior to SCIT; Duration: 30 days Active Citalopram Hydrobromide 20 MG 1 tab(s) orally once a day Active Immunizations Vaccine Route Administration Date Status Comme nts Allergy Immunotherapy Weekly Unknown 11/16/2020 Administered Portal Informati on NOC Tdap Unknown 04/04/2018 Administered Portal Infor mation Influenza Unknown 02/14/2020 Administered Portal Infor mation Flucelvax Unknown 03/11/2021 Administered Social History Tobacco Use: Social History Observation Description Date Details (start date - stop date) Never Smoker NA - NA Sex Assigned At : Social History Observation Description Sex Assigned At Female Tobacco Control (Standard) Question Answer Notes Tobacco use: Nonsmoker Section Notes: Problems Problem Type SNOMED Code ICD Code Onset Dates Problem Status W/U Status Risk Notes Problem Anxiety disorder (265343760) Anxiety disorder, unspecified (F41.9) Active confirmed Problem Chronic allergic conjunctivitis (68127104) Other chronic allergic conjunctivitis (H10.45) Active confirmed Problem Allergic rhinitis caused by pollen (disorder) (03900867) Allergic rhinitis due to pollen (J30.1) Active confirmed Problem Allergic rhinitis caused by animal hair and dander (408808301732439) Allergic rhinitis due to animal (cat) (dog) hair and dander (J30.81) Active confirmed Problem Allergic rhinitis (57735174) Other allergic rhinitis (J30.89) Active confirmed Problem Allergic rhinitis caused by pollen (disorder) (25058445) Allergic rhinitis due to pollen (J30.1) Active confirmed Problem Allergic rhinitis caused by animal hair and dander (003460236399860) Allergic rhinitis due to animal (cat) (dog) hair and dander (J30.81) Active confirmed Problem Allergic rhinitis (42608297) Other allergic rhinitis (J30.89) Active confirmed Problem Chronic allergic conjunctivitis (86822449) Other chronic allergic conjunctivitis (H10.45) Active confirmed Vital Signs Blood pressure diastolic 75 mm Hg 12/08/2024 Oximetry 100 % 12/08/2024 Height 66 in 12/08/2024 Blood pressure systolic 115 mm Hg 12/08/2024 Weight 215.8 lbs 12/08/2024 BMI 34.83 kg/m2 12/08/2024 Encounters Encounter Location Date Provider Diagnosis [address] [address] 04/14/2025 Montez Juarez Allergic rhinitis du e to pollen J30.1 ; Other allergic rhinitis J30.89 ; Allergic rhinitis due to animal (cat) (dog) hair and dander J30.81 and Other chronic allergic conjunctivitis H10.45 [facility] [address] [place] [address] 03/17/2025 Montez Juarez Allergic rhinitis du e to pollen J30.1 ; Other allergic rhinitis J30.89 ; Allergic rhinitis due to animal (cat) (dog) hair and dander J30.81 and Other chronic allergic conjunctivitis H10.45 [facility] [address] [place] [address] 02/17/2025 Montez Juarez Allergic rhinitis du e to pollen J30.1 ; Other allergic rhinitis J30.89 ; Allergic rhinitis due to animal (cat) (dog) hair and dander J30.81 and Other chronic allergic conjunctivitis H10.45 [facility] [address] [place] [address] 01/12/2025 Montez Juarez Allergic rhinitis du e to pollen J30.1 ; Other allergic rhinitis J30.89 ; Allergic rhinitis due to animal (cat) (dog) hair and dander J30.81 and Other chronic allergic conjunctivitis H10.45 [facility] [address] [place] [address] 12/15/2024 Montez Juarez Allergic rhinitis du e to pollen J30.1 ; Other allergic rhinitis J30.89 ; Allergic rhinitis due to animal (cat) (dog) hair and dander J30.81 and Other chronic allergic conjunctivitis H10.45 [facility] [address] [place] [address] 11/17/2024 Montez Juarez Allergic rhinitis du e to pollen J30.1 ; Other allergic rhinitis J30.89 ; Allergic rhinitis due to animal (cat) (dog) hair and dander J30.81 and Other chronic allergic conjunctivitis H10.45 [facility] [address] [place] [address] 10/20/2024 Montez Juarez Allergic rhinitis du e to pollen J30.1 ; Other allergic rhinitis J30.89 ; Allergic rhinitis due to animal (cat) (dog) hair and dander J30.81 and Other chronic allergic conjunctivitis H10.45 [facility] [address] [place] [address] 09/17/2024 Montez Juarez Allergic rhinitis du e to pollen J30.1 ; Other allergic rhinitis J30.89 ; Allergic rhinitis due to animal (cat) (dog) hair and dander J30.81 and Other chronic allergic conjunctivitis H10.45 [facility] [address] [place] [address] 08/12/2024 Montez Juarez Allergic rhinitis du e to pollen J30.1 ; Other allergic rhinitis J30.89 ; Allergic rhinitis due to animal (cat) (dog) hair and dander J30.81 and Other chronic allergic conjunctivitis H10.45 [facility] [address] [place] [phone] 07/15/2024 Montez Juarez Allergic rhinitis du e to pollen J30.1 ; Other allergic rhinitis J30.89 ; Allergic rhinitis due to animal (cat) (dog) hair and dander J30.81 and Other chronic allergic conjunctivitis H10.45 [facility] [address] [place] [address] 07/08/2024 Montez Juarez Allergic rhinitis du e to pollen J30.1 ; Other allergic rhinitis J30.89 ; Allergic rhinitis due to animal (cat) (dog) hair and dander J30.81 and Other chronic allergic conjunctivitis H10.45 [facility] [address] [place] [address] 07/01/2024 Montez Juarez Allergic rhinitis du e to pollen J30.1 ; Other allergic rhinitis J30.89 ; Allergic rhinitis due to animal (cat) (dog) hair and dander J30.81 and Other chronic allergic conjunctivitis H10.[address] [address] 05/07/2024 Montez Juarez Allergic rhinitis du e to pollen J30.1 ; Other allergic rhinitis J30.89 ; Allergic rhinitis due to animal (cat) (dog) hair and dander J30.81 and Other chronic allergic conjunctivitis H10.[address] [address] 12/08/2024 Cari Marni Allergic rhinitis du e to pollen J30.1 ; Allergic rhinitis due to animal (cat) (dog) hair and dander J30.81 ; Other allergic rhinitis J30.89 and Other chronic allergic conjunctivitis H10.[address] [address] 06/03/2024 Orion Graf Allergic rhinitis du e to pollen J30.1 ; Allergic rhinitis due to animal (cat) (dog) hair and dander J30.81 ; Other allergic rhinitis J30.89 and Other chronic allergic conjunctivitis H10.45 Assessments Encounter Date Diagnosis (ICD Code) Assessment Notes Treatment Notes Treatment Clinical Notes Section Notes 05/07/2024 Allergic rhinitis due to pollen (ICD-10 [...] rhinitis due to pollen (ICD-10 - J30.1) 08/12/2024 Allergic rhinitis due to pollen (ICD-10 - J30.1) 09/17/2024 Allergic rhinitis due to pollen (ICD-10 - J30.1) 10/20/2024 Allergic rhinitis due to pollen (ICD-10 - J30.1) 11/17/2024 Allergic rhinitis due to pollen (ICD-10 - J30.1) 12/08/2024 Allergic rhinitis due to pollen (ICD-10 - J30.1) Tonia clearly suffers from additional atopic disease based upon our skin testing as well as prior records. Accordingly, we have encouraged her medication regimen, discussed nasal washes and allergy-specific avoidance measures. - She continues to tolerate SCIT noted improvement in baseline symptoms. She continues to see improvement on MM dosing. Not due for dosing today. - Continue triple premedication 30 mins to 2 hours before SCIT. Keep AIE on hand 2 hours after SCIT. Refill provided. - Continue medication regimen as above. - Tonia has been on MM for three years. Her vials were remade in June. Finish current vials, will then discuss trial off SCIT depending on her symptom control. - Discussed increasing SCIT frequency in peak season. - Return as scheduled for SCIT and in 6 months for further evaluation and management 12/08/2024 Allergic rhinitis due to animal (cat) (dog) hair and dander (ICD-10 - J30.81) Follow allergen avoidance, meds and continue SCIT as an adjunctive treatment to current regimen 12/15/2024 Allergic rhinitis due to pollen (ICD-10 - J30.1) 01/12/2025 Allergic rhinitis due to pollen (ICD-10 - J30.1) 02/17/2025 Allergic rhinitis due to pollen (ICD-10 - J30.1) 03/17/2025 Allergic rhinitis due to pollen (ICD-10 - J30.1) 04/14/2025 Allergic rhinitis due to pollen (ICD-10 - J30.1) 04/14/2025 Other allergic rhinitis (ICD-10 - J30.89) 03/17/2025 Other allergic rhinitis (ICD-10 - J30.89) 02/17/2025 Other allergic rhinitis (ICD-10 - J30.89) 01/12/2025 Other allergic rhinitis (ICD-10 - J30.89) 12/15/2024 Other allergic rhinitis (ICD-10 - J30.89) 12/08/2024 Other allergic rhinitis (ICD-10 - J30.89) Follow allergen avoidance, meds and continue SCIT as an adjunctive treatment to current regimen 11/17/2024 Other allergic rhinitis (ICD-10 - J30.89) 10/20/2024 Other allergic rhinitis (ICD-10 - J30.89) 09/17/2024 Other allergic rhinitis (ICD-10 - J30.89) 08/12/2024 Other allergic rhinitis (ICD-10 - J30.89) 07/15/2024 Other allergic rhinitis (ICD-10 - J30.89) 07/08/2024 Other allergic rhinitis (ICD-10 - J30.89) 07/01/2024 Other allergic rhinitis (ICD-10 - J30.89) 06/03/2024 Other allergic rhinitis (ICD-10 - J30.89) Follow allergen avoidance, meds and continue SCIT as an adjunctive treatment to current regimen 05/07/2024 Other allergic rhinitis (ICD-10 - J30.89) 06/03/2024 Other chronic allergic conjunctivitis (ICD-10 - [...] (dog) hair and dander (ICD-10 - J30.81) 08/12/2024 Allergic rhinitis due to animal (cat) (dog) hair and dander (ICD-10 - J30.81) 09/17/2024 Allergic rhinitis due to animal (cat) (dog) hair and dander (ICD-10 - J30.81) 10/20/2024 Allergic rhinitis due to animal (cat) (dog) hair and dander (ICD-10 - J30.81) 12/08/2024 Other chronic allergic conjunctivitis (ICD-10 - H10.45) Given ocular signs and symptoms I encouraged allergy avoidance measures and meds as above. If symptoms persist, consider adding additional medications including intraocular antihistamine/mas t cell stabilizer, PRN and continue SCIT as an adjunctive measure 11/17/2024 Allergic rhinitis due to animal (cat) (dog) hair and dander (ICD-10 - J30.81) 12/15/2024 Allergic rhinitis due to animal (cat) (dog) hair and dander (ICD-10 - J30.81) 01/12/2025 Allergic rhinitis due to animal (cat) (dog) hair and dander (ICD-10 - J30.81) 02/17/2025 Allergic rhinitis due to animal (cat) (dog) hair and dander (ICD-10 - J30.81) 03/17/2025 Allergic rhinitis due to animal (cat) (dog) hair and dander (ICD-10 - J30.81) 04/14/2025 Allergic rhinitis due to animal (cat) (dog) hair and dander (ICD-10 - J30.81) 04/14/2025 Other chronic allergic conjunctivitis (ICD-10 - H10.45) 03/17/2025 Other chronic allergic conjunctivitis (ICD-10 - H10.45) 02/17/2025 Other chronic allergic conjunctivitis (ICD-10 - H10.45) 01/12/2025 Other chronic allergic conjunctivitis (ICD-10 - H10.45) 12/15/2024 Other chronic allergic conjunctivitis (ICD-10 - H10.45) 11/17/2024 Other chronic allergic conjunctivitis (ICD-10 - H10.45) 10/20/2024 Other chronic allergic conjunctivitis (ICD-10 - H10.45) 09/17/2024 Other chronic allergic conjunctivitis (ICD-10 - H10.45) 08/12/2024 Other chronic allergic conjunctivitis (ICD-10 - H10.45) 07/15/2024 Other chronic allergic conjunctivitis (ICD-10 - H10.45) 07/08/2024 Other chronic allergic conjunctivitis (ICD-10 - H10.45) 07/01/2024 Other chronic allergic conjunctivitis (ICD-10 - H10.45) 05/07/2024 Other chronic allergic conjunctivitis (ICD-10 - H10.45) Plan Of Treatment Next Appt Details Provider Name:Montez Juarez , 05/12/2025 09:30:00 AM, [address], [address], Provider Name:Cari dumont, 06/22/2025 10:30:00 AM, [address], [address], [place], [address], Insurance Providers Payer Name Payer Address Payer Phone Subscriber Number Group Number Insured Name Patient Relationship to Insured Coverage Start Date Coverage End Date [employer] POS II [address] [place] [address] [id number] Dev Long Spouse - patient is the spouse of the insured Medical (General) History Medical History History ICD Code Anxiety disorder, unspecified F41.9 Allergic rhinitis due to pollen J30.1 Allergic rhinitis due to animal (cat) (d og) hair and dander J30.81 Other allergic rhinitis J30.89 Surgical History Surgery Date(Month/Year)
== END 2025-04-21 11:24 | disposition home or self-care (01) ==
PROVIDERS: PCP Family Medicine; Visit Provider Student in an Organized Health Care Education/Training Program
DX: N63.10 Unspecified lump in the right breast, unspecified quadrant (principal)
CPT/HCPCS: 76642; 77062; 77066; G0279